=== PATIENT | male | born 1995 | race African-American/Black ===

== ENCOUNTER 2016-07-15 16:08 | Emergency (ER) | payer OTHER ==
[~2016-07-15] VITALS: Ht 170.2 cm; Wt 50.8 kg
[~2016-07-15 16:08] MED LIST: DOXYCYCLINE HY100 MG PO; FLEXERIL5 M1 PO; OMEPRAZOLE20 MG PO; ONDANSETRON HCL8 MG PO; PRILOSEC20 MG PO
[2016-07-15 17:39] LABS: EOSINOPHIL (%) 0.2 % (0-5); HEMATOCRIT 45.9 % (38.0-50.0); IMMATURE GRANULOCYTE (%) 0.2 % (0.0-0.7); INSTRUMENT ABS NEUTROPHIL CT 2.9 K/uL; LYMPHOCYTE COUNT 1.4 K/uL (1.0-2.8); MCH 28.3 PG (29.0-34.0); MCHC 32.9 G/DL (30.0-36.0); MCV 86.1 FL (86-99); MEAN PLAT.VOLUME 9.5 uM^3 (9.0-12.4); MONOCYTE (%) 6.6 % (3-12); MONOCYTE COUNT 0.3 K/uL (0-0.8); NEUTROPHIL (%) 62.6 % (45-76); NEUTROPHIL COUNT 2.9 K/uL (1.8-6.4); PLATELET COUNT 257 K/uL (156-360); RBC DIS.WIDTH-SD 40.6 % (39-53); RED BLOOD COUNT 5.33 M/uL (4.00-5.50); WHITE BLOOD COUNT 4.6 K/uL (4.1-10.2)
[2016-07-15 17:47] LABS: CHLORIDE 106 mEq/L (99-109); POTASSIUM 4.2 mEq/L (3.7-5.4); SODIUM 140 mEq/L (136-147)
[2016-07-15 17:49] LABS: GLUCOSE 74 mg/dL (70-99)
[2016-07-15 17:50] LABS: ANION GAP 11 MEQ/L (2-14)
[2016-07-15 17:52] LABS: D-DIMER ELISA < 0.15 mg/L FEU (< 0.57)
[2016-07-15 17:53] LABS: GFR ESTIMATE (CALCULATED) > 59 mL/min/
[2016-07-15 17:54] LABS: UREA NITROGEN (BUN) 19 mg/dL (9-23)
[2016-07-15 18:58] VITALS: BP 101/69
== END 2016-07-15 19:06 | disposition home or self-care (01) ==
LOC: EME 16:08
PROVIDERS: Emergency Medicine
DX: S16.1XXA Strain of muscle, fascia and tendon at neck level, initial encounter (principal); F17.200 Nicotine dependence, unspecified, uncomplicated
CPT/HCPCS: 71020; 80048; 85025; 85379; 93005; 99281; 99284

== ENCOUNTER 2017-07-10 12:03 | Emergency (ER) | payer OTHER ==
[~2017-07-10] VITALS: Ht 170.2 cm; Wt 49.6 kg
[2017-07-10 12:09] VITALS: BP 153/107
== END 2017-07-10 12:54 | disposition left against medical advice (07) ==
LOC: EME 12:03
DX: R06.02 Shortness of breath (principal); R07.9 Chest pain, unspecified; Z53.21 Procedure and treatment not carried out due to patient leaving prior to being seen by health care provider
CPT/HCPCS: 71046; 80048; 84484; 85027; 93005